=== PATIENT | female | born 1950 | race Caucasian/White ===

== ENCOUNTER 2019-09-09 09:18 | Day surgery (SDC) | payer OTHER ==
[2014-03-29 01:06] VITALS: BP 136/61
[~2019-09-09 09:18] MED LIST: GLYCOPYRROLATE 0.2 MG/1 ML 1 ML ONE; LACTATED RINGERS 1,000 ML IV.SOLN IV ONE; LIDOCAINE HCL 2% PF 100MG/5ML VIAL IJ ONE; PROPOFOL 200 MG/20 ML VIAL IV ONE
--- NOTE | 2019-09-13 11:49 | GI Report ---
DATE OF PROCEDURE: 09/09/2019 REFERRING PHYSICIAN: Amita Pandey NP PROCEDURE PERFORMED: Colonoscopy and polypectomy. SURGEON: Diane Brock M.D., F.Andrew.CDontaeP. INDICATION FOR PROCEDURE: 69-year-old woman who has had change in bowel habits. Her last colonoscopy was over 10 years ago. Her mother had colon cancer in her 40s. PROCEDURE MEDICATION: Propofol, as per Anesthesia. DESCRIPTION OF PROCEDURE: An Olympus video colonoscope was advanced to the rectum. The patient has an extremely atonic, redundant colon. It took a lot of maneuvering and nurse compression to finally reach the cecum. The appendiceal orifice, ileocecal valve were normal. On slow withdrawal, the cecum, ascending colon, transverse colon a lot of redundancy but no obvious intraluminal lesions were noted. Likewise in the descending colon and sigmoid, significant redundancy. No obvious intraluminal lesions noted. In the rectum at about 3 cm from the anal canal the patient had a villous-appearing polyp, sessile, attached over about an 8 mm to 10 mm size; removed with electrocautery. There was no obvious residual after that polypectomy. The patient tolerated the procedure well. FINDINGS: 1. A villous-appearing centimeter sessile polyp in the rectum, removed with electrocautery. 2. Very atonic, redundant colon. RECOMMENDATIONS: 1. Pending the pathology of the polyp, she may need this looked at again between 3 and 5 years. 2. I would add MiraLAX daily, half scoop. Increase fruits and vegetables in the diet. 3. Follow up with Amita Pandey NP. DIANE BROCK M.D., F.A.CDontaeP. Daphney R: 09/13/19 T: [id number] Job#: [id number] Cc: Amita Pandey NP [facility]
== END 2019-09-09 11:47 | disposition home or self-care (01) ==
LOC: OPSURG 09:18
PROVIDERS: ATTEND Internal Medicine Gastroenterology
DX: R19.4 Change in bowel habit (principal); Z80.0 Family history of malignant neoplasm of digestive organs; K62.1 Rectal polyp
CPT/HCPCS: 45380; 88305; J2001; J2704; J3490; J7120